=== PATIENT | male | born 1935 | race Caucasian/White ===

== ENCOUNTER 2018-08-05 15:40 | Observation (INO) ==
[2018-08-05] MEDS ORDERED: ASPIRIN 325 MG TABLET PO STA (16:02)
[2018-08-05] MEDS ORDERED: ONDANSETRON 4 MG/2 ML VIAL IV STA (16:02)
[2018-08-05] MEDS ORDERED: SODIUM CHLORIDE 0.9% 500 ML IV STA (16:02)
[2018-08-05 16:30] LABS: Basophils # 0.1 10*3/uL (0.0-0.2); Basophils % 0.8 % (0.0-0.8); Eosinophils % 0.1 % (0.00-10.9); Hematocrit 46.3 VOL% (42.0-52.0); Hemoglobin 14.8 GM/DL (14.0-18.0); Immature Granulocytes % 0.3 %; Immature Granulocytes Absolute 0.02 #; Lymphocytes # 0.9 10*3/uL (1.4-4.0); Lymphocytes % 11.8 % (21.2-54.2); Mean Corpuscular Volume 99.4 FL (87-102); Mean Platelet Volume 10.3 FL (9.6-12.0); Monocytes % 6.8 % (1.7-12.7); Neutrophils % 80.2 % (38.7-73.9); Platelet Count 199 T/CUMM (130-400); Red Blood Count 4.66 MC/CUMM (3.8-5.5); Red Cell Distribution Width 14.4 % (9.3-17.3); White Blood Count 7.8 T/CUMM (4-12)
[2018-08-05 16:43] LABS: PT Patient Result 11.1 SECS; Partial Thromboplastin Time 23.1 SECS (0-40)
[2018-08-05 16:50] LABS: Albumin 3.7 G/DL (3.4-5.0); Bilirubin,Total 1.3 MG/DL (0.2-1.0); Calcium 9.6 MG/DL (8.5-10.1); Osmolality,Calculated 279.4 MOS/KG (273-304)
[2018-08-05 16:53] LABS: Troponin I 0.096 NG/ML (0.00-0.045)
[2018-08-05] MEDS ORDERED: NITROGLYCERIN SL 0.4 MG TABLET SL PRN (17:43)
[2018-08-05] MEDS ORDERED: ONDANSETRON 4 MG/2 ML VIAL IV PRN (17:43)
[2018-08-05] MEDS ORDERED: ACETAMINOPHEN 325 MG TABLET PO PRN (17:43)
[2018-08-05] MEDS ORDERED: ENOXAPARIN 40 MG/0.4 ML SYRINGE SUBCUT SCH (21:00)
[2018-08-05] MEDS: METOPROLOL TARTRATE 25 MG TABLET PO SCH (21:11)
[2018-08-06] MEDS: SODIUM CHLORIDE 0.45% 1,000 ML IV SCH ×4 (00:25→17:39)
[2018-08-06] MEDS ORDERED: HEPARIN DRIP 25,000 UNITS/500 ML PREMIX IV SCH (03:30)
[2018-08-06 03:42] LABS: Basophils % 0.6 % (0.0-0.8); Eosinophils # 0.1 10*3/uL (0.0-0.87); Eosinophils % 1.3 % (0.00-10.9); Hematocrit 41.9 VOL% (42.0-52.0); Hemoglobin 13.3 GM/DL (14.0-18.0); Immature Granulocytes % 0.4 %; Immature Granulocytes Absolute 0.03 #; Lymphocytes # 1.7 10*3/uL (1.4-4.0); Lymphocytes % 24.4 % (21.2-54.2); Mean Corpuscular HGB Conc 31.7 GM/DL (32-36); Mean Corpuscular Volume 99.3 FL (87-102); Mean Platelet Volume 11.3 FL (9.6-12.0); Monocytes % 9.9 % (1.7-12.7); Neutrophils % 63.4 % (38.7-73.9); Platelet Count 186 T/CUMM (130-400); Red Blood Count 4.22 MC/CUMM (3.8-5.5); Red Cell Distribution Width 14.2 % (9.3-17.3)
[2018-08-06 04:31] LABS: Calcium 8.4 MG/DL (8.5-10.1)
[2018-08-06 04:42] LABS: Osmolality,Calculated 284.1 MOS/KG (273-304); Risk Ratio 2.33; VLDL CHOLESTEROL 15.2 MG/DL
[2018-08-06] MEDS ORDERED: ASPIRIN EC 325 MG TABLET PO SCH (09:00)
[2018-08-06] MEDS: METOPROLOL TARTRATE 25 MG TABLET PO SCH ×2 (14:23→21:23)
[2018-08-06] MEDS ORDERED: ATORVASTATIN 40 MG TABLET PO SCH (21:00)
[2018-08-07] MEDS: SODIUM CHLORIDE 0.45% 1,000 ML IV SCH (02:19)
[2018-08-07 08:31] VITALS: BP 124/57
[2018-08-07] MEDS ORDERED: ASPIRIN EC 81 MG TABLET PO SCH (09:00)
[2018-08-07] MEDS: METOPROLOL TARTRATE 25 MG TABLET PO SCH (09:07)
== END 2018-08-07 11:00 | disposition home or self-care (01) ==
LOC: N.ED 15:40 → N.EDINP 15:40 → N.TELEN 19:28
PROVIDERS: ADMIT Hospitalist; ATTEND Hospitalist